=== PATIENT | male | born 1975 | race Caucasian/White ===

== ENCOUNTER 2022-01-16 18:31 | Emergency (ER) | payer OTHER, SELFPAY ==
[2022-01-16 18:41] VITALS: BP 135/80; PULSE 85; RESP 16; TEMP 36.5; O2SAT 99
--- NOTE | 2022-01-16 18:48 | ED.BACK ---
HPI - Back Pain/Injury General Chief Complaint: Back Pain/Injury Stated Complaint: coughed then pain in low right back; heard pop Time Seen by Provider: 01/16/22 18:48 Source: patient Mode of arrival: ambulatory Limitations: no limitations History of Present Illness HPI Narrative: 46-year-old male presents with complaint of right-sided mid back pain that started after coughing. Reports that he is getting over a sinus infection and has a cough. Is taking medications to treat this. States cough yesterday while in drive through waiting on food and felt dull ache to right mid back. Since coughing all day today pain is worse. Has not taken any [id number] pain medication To treat his pain. Ambulatory with steady gait. All systems reviewed and negative except as noted above. Related Data Home Medications Medication Instructions Recorded Confirmed amlodipine 10 mg tablet 10 mg PO DAILY 01/16/22 01/16/22 lisinopril 20 mg tablet 20 mg PO DAILY 01/16/22 01/16/22 Allergies Allergy/AdvReac Type Severity Reaction Status Date / Time niacin Allergy Unknown Other Verified 01/16/22 18:37 poison so extract Allergy Unknown Other Verified 01/16/22 18:37 Review of Systems Review of Systems: CONSTITUTIONAL: Denies fever, chills, or sweats. EYES: Denies visual changes, redness, or discharge. ENT: Denies rhinorrhea, congestion, sore throat, or otalgia. CARDIOVASCULAR: Denies chest pain, palpitations, or edema. RESPIRATORY: Denies cough or dyspnea. GASTROINTESTINAL: Denies abdominal pain, nausea, vomiting, or diarrhea. GENITOURINARY: Denies dysuria or hematuria. SKIN: Denies rash or itching. MUSCULOSKELETAL: reports right-sided mid back pain. NEUROLOGIC: Denies headache, numbness, or weakness. PSYCHIATRIC: Denies anxiety or depression. All other systems reviewed are negative, except as documented in HPI. PMFSH Comments At time of signature, agree with nursing past medical, surgical, social and family history. There is no relevant family history pertinent to the presenting complaint. Exam Narrative: GENERAL: This is a well-nourished, well-developed patient, in no apparent distress. HEAD: normocephalic, atraumatic. EYES: PERRL. Sclera clear/white. Vision is grossly intact. EARS: External ears normal, auditory canals clear and without drainage, TMs normal without perforation. Hearing grossly intact. NOSE: External nose normal with no obvious nasal discharge, nares without redness, no rhinorrhea. THROAT: Mucous membranes moist, posterior pharynx clear. NECK: Neck supple, non-tender without lymphadenopathy, masses or thyromegaly. CARDIOVASCULAR: Regular rate and rhythm without murmurs, gallops, or rubs. RESPIRATORY: Clear to auscultation. Breath sounds equal bilaterally. No wheezes, rales, or rhonchi. SKIN: warm, Dry, intact with no suspicious lesions or rash, good texture and turgor. NEURO: awake, alert, and oriented to person, place and time. There were no obvious focal neurologic abnormalities. EXTREMITIES: No joint tenderness, effusion, or edema noted. BACK: No midline tenderness. Back pain is not reproducible With palpation. Normal range of motion. Course Course Level of Care: Express Care Visit Vital Signs Vital signs: Vital Signs Temperature 36.5 C 01/16/22 18:41 Pulse Rate 85 01/16/22 18:41 Respiratory Rate 16 01/16/22 18:41 Blood Pressure 135/80 01/16/22 18:41 Pulse Oximetry 99 01/16/22 18:41 Oxygen Delivery Room Air 01/16/22 18:41 Temperature 36.5 C 01/16/22 18:41 Pulse Rate 85 01/16/22 18:41 Respiratory Rate 16 01/16/22 18:41 Blood Pressure 135/80 01/16/22 18:41 Pulse Oximetry 99 01/16/22 18:41 Oxygen Delivery Room Air 01/16/22 18:41 Reviewed MDM - Back Pain/Injury MDM Narrative Medical decision making narrative: Patient is aware of diagnosis, understands and agrees to treatment plan. Anticipatory guidance given. Patient agrees to follow-up as direc
== END 2022-01-16 18:58 | disposition home or self-care (01) ==
PROVIDERS: Emergency Provider Nurse Practitioner Family; PCP Nurse Practitioner Family
DX: S29.012A Strain of muscle and tendon of back wall of thorax, initial encounter (principal); R05.9 Cough, unspecified; X58.XXXA Exposure to other specified factors, initial encounter
CPT/HCPCS: 99213; G0463